=== PATIENT | female | born 1950 | race Caucasian/White ===

== ENCOUNTER 2025-03-23 10:37 | Emergency (ER) | payer MEDICARE, OTHER ==
[~2025-03-23] VITALS: Ht 160 cm; Wt 88.9 kg
[2025-03-23 10:52] VITALS: BP 122/91; TEMP 98.2; O2SAT 96
== END 2025-03-23 12:06 | disposition home or self-care (01) ==
LOC: ER 10:52
DX: Z00.00 Encounter for general adult medical examination without abnormal findings (principal); F32.A Depression, unspecified